=== PATIENT | male | born 1995 | race Caucasian/White ===

== ENCOUNTER 2022-04-18 11:40 | Emergency (ER) | payer MEDICAID ==
[~2022-04-18] VITALS: Ht 177.8 cm; Wt 56.8 kg
[2022-04-18] MEDS ORDERED: ACETAMINOPHEN 325 MG TABLET PO ONE (12:00)
[2022-04-18] MEDS ORDERED: DOXY-354 PO (12:57)
[2022-04-18] MEDS ORDERED: DOXYCYCLINE HYCLATE 100 MG TABLET PO ONE (13:00)
[2022-04-18 13:15] VITALS: BP 125/80
== END 2022-04-18 13:25 | disposition home or self-care (01) ==
LOC: EMS 11:43
DX: S60.011A Contusion of right thumb without damage to nail, initial encounter (principal); Z87.891 Personal history of nicotine dependence; X58.XXXA Exposure to other specified factors, initial encounter; Y93.89 Activity, other specified; Y92.89 Other specified places as the place of occurrence of the external cause; Y99.8 Other external cause status
CPT/HCPCS: 99283